=== PATIENT | male | born 1975 | race Caucasian/White ===

== ENCOUNTER 2019-01-08 01:42 | Outpatient (CLI) | payer BC ==
[~2019-01-08 01:42] MED LIST: CYCL-1 PO
== END 2019-01-08 23:59 | disposition home or self-care (01) ==
LOC: DIABETIC 01:42
PROVIDERS: ATTEND Family Medicine
DX: E11.9 Type 2 diabetes mellitus without complications (principal); Z71.3 Dietary counseling and surveillance
CPT/HCPCS: G0108